=== PATIENT | male | born 1985 | race Caucasian/White ===

== ENCOUNTER → 2021-01-28 | Outpatient (CLI) | payer OTHER ==
--- NOTE | 2021-01-28 16:08 | RAD ---
3 views right hand 01/28/2021 3:56 PM Indication: Reason: RIGHT 5TH DIGIT PAIN AFTER TRAUMA / Spl. Instructions: / History: Comparison: None Findings: There is a minimally displaced oblique fracture of the distal aspect of the proximal fifth phalanx. Fracture may involve the radial aspect of the articular surface. Soft tissue edema noted. No other fracture or dislocation is seen. IMPRESSION: Fracture of the fifth proximal phalanx as described Electronically signed by: Thaddeus eMza MD (01/28/2021 4:06 PM) [id number]
== END ==
LOC: RAD 15:44
PROVIDERS: ATTEND Nurse Practitioner Family
DX: S89.91XA Unspecified injury of right lower leg, initial encounter (principal); S62.616A Displaced fracture of proximal phalanx of right little finger, initial encounter for closed fracture; X58.XXXA Exposure to other specified factors, initial encounter; Y93.89 Activity, other specified; Y92.89 Other specified places as the place of occurrence of the external cause; Y99.8 Other external cause status
CPT/HCPCS: 73130